=== PATIENT | female | born 1990 | race Caucasian/White ===

== ENCOUNTER 2024-03-23 05:06 | Inpatient (IN) | payer BC ==
[2024-03-23] MEDS ORDERED: Oxytocin/Lactated Ringers 30 UNIT/500 ML BAG IV SCH (05:15)
[2024-03-23] MEDS: Lactated Ringers 1,000 ML IV SCH (05:45)
[2024-03-23 06:07] LABS: HEMATOCRIT 35.5 % (37.0-47.0); MEAN CORPUSCULAR HEMOGLOBIN 28.6 pg (28.0-32.0); MEAN CORPUSCULAR HGB CONC 33.8 g/dl (32.0-36.0); MEAN CORPUSCULAR VOLUME 84.5 fl (83.0-99.0); PLATELET COUNT,PLT 255 K/mm3 (150-400)
[2024-03-23] MEDS ORDERED: fentaNYL 100 MCG/2 ML SDV IVPUSH PRN (06:37)
[2024-03-23] MEDS ORDERED: Meperidine 50 MG/ML Vial IVPUSH PRN (06:37)
[2024-03-23] MEDS ORDERED: diphenhydrAMINE 50 MG/ML SDV IVPUSH PRN ×2 (06:37→10:33)
[2024-03-23] MEDS ORDERED: Ondansetron 4 MG/2 ML SDV IVPUSH PRN (06:37)
[2024-03-23] MEDS ORDERED: Morphine PF 10 MG/10 ML SDV ONE (06:41)
[2024-03-23] MEDS: Citric Acid/Sodium Citrate Solution 30 ML Cup PO ONE (07:02)
[2024-03-23] MEDS: Metoclopramide 10 MG/2 ML SDV IVPUSH ONE (07:02)
[2024-03-23] MEDS ORDERED: ceFAZolin 2 GM Vial ONE (07:16)
[2024-03-23] MEDS ORDERED: Lactated Ringers 1,000 ML IV ONE (07:30)
[2024-03-23] MEDS: Bupivacaine 0.5% 30 ML SDV ONE (08:07)
[2024-03-23] MEDS ORDERED: Ketorolac 30 MG/ML SDV ONE (08:23)
[2024-03-23] MEDS ORDERED: Naloxone 0.4 MG/ML SDV IVPUSH PRN (10:33)
[2024-03-23] MEDS ORDERED: Acetaminophen/oxyCODONE 325-5 MG Tab PO PRN (10:33)
[2024-03-23] MEDS ORDERED: Acetaminophen 325 MG Tab PO PRN (10:33)
[2024-03-23] MEDS ORDERED: ePHEDrine 50 MG/ML SDV IVPUSH PRN (10:33)
[2024-03-23] MEDS: Dextrose 5%-Lactated Ringers 1,000 ML IV SCH (10:51)
[2024-03-23] MEDS: Acetaminophen/oxyCODONE 325-5 MG Tab PO PRN (12:20)
[2024-03-23] MEDS: Ondansetron 4 MG/2 ML SDV IVPUSH PRN (13:51)
[2024-03-23] MEDS: Ketorolac 30 MG/ML SDV IVPUSH SCH (14:26)
[2024-03-24 06:22] LABS: BASOPHILS PERCENT AUTO 0.3 % (0.0-1.0); EOSINOPHILS ABSOLUTE AUTO 0.1 K/mm3 (0.0-0.4); EOSINOPHILS PERCENT AUTO 0.4 % (0.0-6.0); HEMATOCRIT 36.7 % (37.0-47.0); IMMATURE GRAN ABSOLUTE AUTO 0.11 K/mm3 (0.00-0.05); IMMATURE GRAN PERCENT AUTO 0.7 % (0.0-0.4); LYMPHOCYTES ABSOLUTE AUTO 2.2 K/mm3 (1.0-4.8); LYMPHOCYTES PERCENT AUTO 14.1 % (24.0-44.0); MEAN CORPUSCULAR HEMOGLOBIN 28.1 pg (28.0-32.0); MEAN CORPUSCULAR HGB CONC 32.7 g/dl (32.0-36.0); MEAN CORPUSCULAR VOLUME 85.9 fl (83.0-99.0); MEAN PLATELET VOLUME 11.2 fl (9.4-12.3); MONOCYTES ABSOLUTE AUTO 1.2 K/mm3 (0.0-0.8); MONOCYTES PERCENT AUTO 7.4 % (0.0-8.0); NEUTROPHILS ABSOLUTE AUTO 12.1 K/mm3 (1.8-7.7); NEUTROPHILS PERCENT AUTO 77.1 % (41.0-71.0); PLATELET COUNT,PLT 237 K/mm3 (150-400); RED BLOOD CELL COUNT 4.27 M/mm3 (4.10-5.30); WHITE BLOOD CELL COUNT,WBC 15.64 K/mm3 (3.9-11.3)
[2024-03-24] MEDS: Ibuprofen 600 MG Tab PO SCH (08:06)
[2024-03-24] MEDS: Sodium Chloride 0.9% 10 ML Syringe FLUSH SCH (08:33)
[2024-03-24] MEDS: Docusate Sodium 100 MG Cap PO PRN (19:00)
[2024-03-25] MEDS: Ibuprofen 600 MG Tab PO SCH (11:54)
== END 2024-03-25 10:45 | disposition home or self-care (01) | DRG 540 ==
LOC: JD.OB 05:06
PROVIDERS: ADMIT Obstetrics & Gynecology; ATTEND Obstetrics & Gynecology
PROC: 10D00Z1 Extraction of Products of Conception, Low, Open Approach (ICD-10-PCS; principal; 2024-03-23 08:00)
DX: O34.211 Maternal care for low transverse scar from previous cesarean delivery (principal); Z37.0 Single live birth; Z3A.39 39 weeks gestation of pregnancy
CPT/HCPCS: 01961; 36415; 59025; 59409; 82947; 85025; 85027; 86592; 86850; 86900; 86901; 94762; A9270-GY; J0665; J0690; J1885; J2274; J2405; J2765; J7120; J7121; J7999